=== PATIENT | male | born 1935 | race Hispanic/Latino ===

== ENCOUNTER → 2022-07-02 | Outpatient (CLI) | payer MEDICARE, OTHER ==
[~2022-07-02] MED LIST: LEVOTHYROXINE25 MCG PO; LOSARTAN POTAS100 MG PO; OMEPRAZOLE40 MG PO
== END ==
LOC: US 07:25
PROVIDERS: ATTEND Nurse Practitioner
DX: K70.30 Alcoholic cirrhosis of liver without ascites (principal); D64.89 Other specified anemias; R63.0 Anorexia
CPT/HCPCS: 76705